=== PATIENT | male | born 1980 | race Caucasian/White ===

== ENCOUNTER 2017-09-07 04:03 | Emergency (ER) | payer SELFPAY ==
[~2017-09-07] VITALS: Ht 172.7 cm; Wt 97.5 kg
[2017-09-07 04:05] VITALS: BP 182/114
--- NOTE | 2017-09-07 04:05 | NUR ---
Amb to bed 9 per self.
--- NOTE | 2017-09-07 04:25 | NUR ---
36/M CAME IN ED, C/O 6/10 L SIDED ABD PAIN, RADIATING TO BACK, X2 DAYS. PT REPORTS HE FELT SIMILAR EPISODE 3 WEEKS AGO WITH PANCREATITIS. PT REPORTS DIARRHEA, DENIES N/V, FEVER, CP, SOB. LBM TODAY. BS ACTIVE X4, ABD SOFT ROUND TENDER. LUNG SOUNDS CLEAR BL. HX PANCREATITIS, HTN, DM. VS NOTED, PT CONNECTED TO MONITOR. ER MD MADE AWARE. PT UNABLE TO COLLECT URINE AT THIS TIME.
--- NOTE | 2017-09-07 04:26 | NUR ---
PT STATED HE USUALLY GETS PANCREATITIS EPISODES WHEN HE HAS "HIGH TRIGLYCERIDES." PT ALSO REPORTED THAT HE HAS NOT BEEN TAKING HIS RX MEDICATIONS FOR THE PAST 3 WEEKS BECAUSE HIS INSURANCE WAS TAKEN AWAY.
--- NOTE | 2017-09-07 05:42 | NUR ---
PT RESTING IN BED, RR EVEN AND UNLABORED, PT REPORTS TOLERABLE PAIN 3/10 AT THIS TIME, VS NOTED, ALL NEEDS MET AT THIS TIME. AWAITING MD EVALUATION.
[2017-09-07] MEDS ORDERED: GEMF600T5 PO (06:44)
[2017-09-07] MEDS ORDERED: GLIP10TA3 PO (06:45)
[2017-09-07] MEDS ORDERED: BENA40TA PO (06:47)
--- NOTE | 2017-09-07 07:10 | NUR ---
PT DENIES PAIN AT THIS TIME, VS NOTED, ASYMPTOMATIC, DENIES S/S OF DISTRESS. MD MADE AWARE. PER PT, PT AGREED TO NOT HAVE BLOOD WORK DONE AND JUST HAVE RX FILLED.
[2017-09-07 07:24] VITALS: BP 184/115
--- NOTE | 2017-09-07 07:24 | NUR ---
Patient discharged with v/s noted, MD aware, pt asymptomatic, no s/s of distress, denies pain. Written and verbal after care instructions given and explained. Patient alert, oriented and verbalized understanding of instructions. Ambulatory with steady gait. All questions addressed prior to discharge. ID band removed. Patient advised to follow up with PMD. Rx of BENAZEPRIL, GLIPIZIDE, GEMFIBROZIL given. Patient educated on indication of medication including possible reaction and side effects. Opportunity to ask questions provided and answered.
== END 2017-09-07 07:24 | disposition home or self-care (01) ==
LOC: MED 04:03
DX: E78.1 Pure hyperglyceridemia (principal); E11.65 Type 2 diabetes mellitus with hyperglycemia; I10 Essential (primary) hypertension; Z79.84 Long term (current) use of oral hypoglycemic drugs; Z87.19 Personal history of other diseases of the digestive system
CPT/HCPCS: 82948; 99283